=== PATIENT | male | born 1985 | race Caucasian/White ===

== ENCOUNTER 2016-10-01 21:34 | Emergency (ER) | payer OTHER ==
[~2016-10-01] VITALS: Ht 175.3 cm; Wt 77.3 kg
[2016-10-01 21:38] VITALS: TEMP 99.1
[2016-10-01] MEDS ORDERED: NORCO 325 MG-7.1 TAB PO (23:15)
[2016-10-01] MEDS ORDERED: CLEOCIN HCL300 MG PO (23:15)
[2016-10-01 23:37] VITALS: BP 119/58; PULSE 72
[2016-10-03] MEDS ORDERED: BACTRIM DS 8001 TAB PO (23:26)
== END 2016-10-01 23:37 | disposition home or self-care (01) ==
LOC: COL.ER 21:34
DX: K61.0 Anal abscess (principal)